=== PATIENT | female | born 1950 | race Two or more races ===

== ENCOUNTER 2020-01-21 08:00 | Outpatient (CLI) | payer OTHER | END 2020-01-21 08:13 | disposition home or self-care (01) | LOC: NUCLEAR 08:00 | PROVIDERS: ATTEND Internal Medicine Sports Medicine | DX: E05.80 Other thyrotoxicosis without thyrotoxic crisis or storm (principal) | CPT/HCPCS: 78012; A9531 ==

== ENCOUNTER 2020-01-22 07:47 | Outpatient (CLI) | payer OTHER | END 2020-01-22 07:55 | disposition home or self-care (01) | LOC: NUCLEAR 07:47 | PROVIDERS: ATTEND Internal Medicine Sports Medicine | DX: E05.80 Other thyrotoxicosis without thyrotoxic crisis or storm (principal) | CPT/HCPCS: 78013; A9512 ==